=== PATIENT | male | born 1965 | race Two or more races ===

== ENCOUNTER 2020-03-15 21:17 | Inpatient (IN) | payer OTHER ==
[~2020-03-15] VITALS: Ht 172.7 cm; Wt 79.3 kg
[2020-03-15] MEDS ORDERED: HEPARIN SODIUM (PORCINE) 5000 UNITS/ML 1ML VIAL ONE (21:24)
[2020-03-15] MEDS ORDERED: HEPARIN 1,000 UNITS/ml 1ML VIAL IV ONE (21:30)
[2020-03-15] MEDS ORDERED: MORPHINE SULFATE 4 MG/ML SYR/VIAL IV ONE (21:30)
[2020-03-15] MEDS ORDERED: METOPROLOL TARTRATE 1MG/1ML-5ML VIAL IV ONE (21:30)
[2020-03-15] MEDS ORDERED: ATORVASTATIN 20 MG TAB PO ONE (21:30)
[2020-03-15] MEDS ORDERED: NITROGLYCERIN 0.4 MG SL TAB SL PRN ×2 (21:30→23:30)
[2020-03-15] MEDS ORDERED: MORPHINE SULF INJ 2 MG/ML SYRINGE 1ML ONE (21:31)
[2020-03-15] MEDS ORDERED: ONDANSETRON HCL 4 MG/2 ML VIAL ONE (21:31)
[2020-03-15] MEDS ORDERED: LIDOCAINE 2%HCL (LOCAL ANESTH.) INJ 20ML MDV ONE (21:45)
[2020-03-15] MEDS ORDERED: IOHEXOL 350 MG/ML 100ML IJ ONE (21:45)
[2020-03-15] MEDS ORDERED: fentaNYL CITRATE 100 MCG/2 ML VL ONE (21:50)
[2020-03-15] MEDS ORDERED: ANGIOMAX 250 MG VIAL IV ONE (21:50)
[2020-03-15] MEDS ORDERED: SODIUM CHL 0.9% 50 ML ONE (21:51)
[2020-03-15] MEDS ORDERED: MIDAZOLAM HCL 1MG/1ML-2 ML VIAL ONE (21:51)
[2020-03-15 21:59] LABS: Albumin 4.1 g/dL (3.4-5.0); Calcium 8.8 mg/dL (8.5-10.1); Magnesium 2.4 mg/dL (1.6-2.6); Potassium 3.8 mmol/L (3.5-5.1)
[2020-03-15 22:05] LABS: BUN/Creatinine Ratio 11.4; Bilirubin, Total 0.3 mg/dL (0.2-1.0); Total Protein 8.4 g/dL (6.4-8.2)
[2020-03-15 22:07] LABS: Basophils # (auto) 0 10 ^3/uL (0-0.2); Basophils % (auto) 0.3 % (0.0-2.0); Eosinophils # (auto) 0 10 ^3/uL (0-0.8); Eosinophils % (auto) 0.1 % (0.0-7.0); Hematocrit 50.1 % (41.0-53.0); Hemoglobin 16.6 g/dL (13.5-17.5); Lymphocytes # (auto) 0.6 10 ^3/uL (0.4-5.4); Lymphocytes % (auto) 7.5 % (10.0-50.0); Mean Corpuscular Hemoglobin 31.1 pg (28.0-32.0); Mean Corpuscular Volume 94.2 fL (80.0-100.0); Monocytes # (auto) 0.4 10 ^3/uL (0-1.3); Monocytes % (auto) 5.4 % (0.0-12.0); Neutrophils # (auto) 6.5 10 ^3/uL (1.6-8.6); Neutrophils % (auto) 86.7 % (37.0-80.0); Nucleated Red Blood Cells % 0.2 %; Platelet Count (auto) 279 10^3/uL (140-450); Red Blood Cells 5.32 10^6/uL (4.5-5.90); Red Cell Distribution Width 13.8 % (11.8-14.3); White Blood Cell 7.5 10^3/uL (4.4-10.8)
[2020-03-15] MEDS ORDERED: TICAGRELOR 90 MG TAB ONE (22:25)
[2020-03-15 22:28] LABS: Cholesterol 209 mg/dL (< 200)
[2020-03-15] MEDS ORDERED: METOCLOPRAMIDE HCL 5MG/ml INJ 2ml VIAL ONE (22:28)
[2020-03-15 22:31] LABS: HDL Cholesterol 38 mg/dL (40-59); LDL Cholesterol 163 mg/dL (< 100); Triglycerides 125 mg/dL (< 150)
[2020-03-15 22:41] LABS: INR 1.01 (0.9-1.15); Partial Thromboplastin Time 24.7 sec (23.64-32.05)
[2020-03-15] MEDS ORDERED: ENALAPRILAT 1.25 MG/ML-1ML VIAL IV ONE (22:42)
[2020-03-15] MEDS ORDERED: MORPHINE SULF INJ 2 MG/ML SYRINGE 1ML IV PRN (23:30)
[2020-03-15 23:55] VITALS: BP 126/66
[2020-03-16] MEDS ORDERED: HYDR200T36 PO (04:24)
[2020-03-16] MEDS ORDERED: ESCI10TA PO (04:26)
[2020-03-16] MEDS ORDERED: HYDR-4833 PO (04:26)
[2020-03-16 05:00] VITALS: BP 108/67
[2020-03-16 07:51] LABS: Albumin 3.5 g/dL (3.4-5.0); Anion Gap 5 (5-15); Blood Urea Nitrogen 11 mg/dL (7-18); Calcium 8.3 mg/dL (8.5-10.1); Carbon Dioxide 26 mmol/L (21-32); Chloride 106 mmol/L (98-107); Glucose 122 mg/dL (74-106); Sodium 137 mmol/L (136-145)
[2020-03-16 08:10] LABS: Alanine Aminotransferase 91 U/L (16-61); Alkaline Phosphatase 57 U/L (45-117); Aspartate Aminotransferase 573 U/L (15-37); BUN/Creatinine Ratio 14.7; Bilirubin, Total 0.5 mg/dL (0.2-1.0); GFR African American 140 mL/min; GFR Non-African American 116 mL/min; Total Protein 7.3 g/dL (6.4-8.2)
[2020-03-16 09:00] VITALS: BP 121/77
[2020-03-16] MEDS: TICAGRELOR 90 MG TAB PO SCH ×2 (09:41→21:41)
[2020-03-16] MEDS: ASPirin 81 mg TAB PO SCH (09:41)
[2020-03-16] MEDS: ENALAPRIL MALEATE 2.5 MG TAB PO SCH (09:41)
[2020-03-16] MEDS: HYDROcodone-ACET 10/325MG TAB PO PRN ×2 (11:40→18:32)
[2020-03-16 13:00] VITALS: BP 124/80
[2020-03-16 17:00] VITALS: BP 116/69
[2020-03-16] MEDS: hydrOXYchloroQUINE SULFATE 200 MG TAB PO SCH (18:32)
[2020-03-16 22:00] VITALS: BP 111/71
[2020-03-16] MEDS ORDERED: ATORVASTATIN 20 MG TAB PO SCH (22:00)
[2020-03-17 05:00] VITALS: BP 120/73
[2020-03-17] MEDS: HYDROcodone-ACET 10/325MG TAB PO PRN (05:51)
[2020-03-17 07:09] LABS: Basophils # (auto) 0 10 ^3/uL (0-0.2); Basophils % (auto) 0.2 % (0.0-2.0); Eosinophils # (auto) 0 10 ^3/uL (0-0.8); Eosinophils % (auto) 0.4 % (0.0-7.0); Hematocrit 49.5 % (41.0-53.0); Hemoglobin 16.2 g/dL (13.5-17.5); Lymphocytes # (auto) 0.8 10 ^3/uL (0.4-5.4); Lymphocytes % (auto) 11.8 % (10.0-50.0); Mean Corpuscular Hemoglobin 31.1 pg (28.0-32.0); Mean Corpuscular Hgb Conc. 32.7 g/dL (32.0-36.0); Mean Corpuscular Volume 94.9 fL (80.0-100.0); Monocytes # (auto) 0.9 10 ^3/uL (0-1.3); Monocytes % (auto) 13.3 % (0.0-12.0); Neutrophils # (auto) 4.7 10 ^3/uL (1.6-8.6); Neutrophils % (auto) 74.3 % (37.0-80.0); Nucleated Red Blood Cells % 0.1 %; Platelet Count (auto) 224 10^3/uL (140-450); Red Blood Cells 5.21 10^6/uL (4.5-5.90); Red Cell Distribution Width 13.6 % (11.8-14.3); White Blood Cell 6.4 10^3/uL (4.4-10.8)
[2020-03-17 07:36] LABS: Calcium 8.5 mg/dL (8.5-10.1); Potassium 4.3 mmol/L (3.5-5.1)
[2020-03-17 08:00] VITALS: BP 106/75
[2020-03-17] MEDS: TICAGRELOR 90 MG TAB PO SCH (10:11)
[2020-03-17] MEDS: hydrOXYchloroQUINE SULFATE 200 MG TAB PO SCH (10:11)
[2020-03-17] MEDS: ASPirin 81 mg TAB PO SCH (10:11)
[2020-03-17] MEDS: ENALAPRIL MALEATE 2.5 MG TAB PO SCH (10:13)
[2020-03-17 10:58] VITALS: BP 106/75
== END 2020-03-17 12:25 | disposition home or self-care (01) | DRG 249 ==
LOC: EDBD 21:17 → ER 21:19 → CATH 1 22:28 → TELE-CENTR 22:29
PROVIDERS: ADMIT Internal Medicine Cardiovascular Disease; ATTEND Internal Medicine
PROC: 4A023N7 Measurement of Cardiac Sampling and Pressure, Left Heart, Percutaneous Approach (ICD-10-PCS; principal; 2020-03-15)
PROC: 02703DZ Dilation of Coronary Artery, One Artery with Intraluminal Device, Percutaneous Approach (ICD-10-PCS; 2020-03-15)
PROC: 02703ZZ Dilation of Coronary Artery, One Artery, Percutaneous Approach (ICD-10-PCS; 2020-03-15)
PROC: B2111ZZ Fluoroscopy of Multiple Coronary Arteries using Low Osmolar Contrast (ICD-10-PCS; 2020-03-15)
PROC: B2151ZZ Fluoroscopy of Left Heart using Low Osmolar Contrast (ICD-10-PCS; 2020-03-15)
DX: I21.02 ST elevation (STEMI) myocardial infarction involving left anterior descending coronary artery (principal); E78.5 Hyperlipidemia, unspecified; I25.10 Atherosclerotic heart disease of native coronary artery without angina pectoris; I25.5 Ischemic cardiomyopathy; Z79.82 Long term (current) use of aspirin; Z79.899 Other long term (current) drug therapy; Z86.73 Personal history of transient ischemic attack (TIA), and cerebral infarction without residual deficits; Z95.5 Presence of coronary angioplasty implant and graft; Z91.19 Patient's noncompliance with other medical treatment and regimen
CPT/HCPCS: 36415; 71045; 80048; 80053; 80061; 82962; 83036; 83735; 83880; 84443; 84484; 85025; 85610; 85730; 86850; 86860; 86870; 86880; 86900; 86901; 86905; 86906; 86970; 86971; 93306; 93452; 99152; 99153; 99291; C1874; G0378; J2250; J2405

== ENCOUNTER 2022-08-13 12:33 | Emergency (ER) | payer OTHER ==
[~2022-08-13] VITALS: Ht 172.7 cm; Wt 81.3 kg
[~2022-08-13 12:33] MED LIST: ESCI10TA PO; HYDR-4833 PO; HYDR200T36 PO
[2022-08-13 13:00] LABS: Basophils # (auto) 0 10 ^3/uL (0-0.2); Basophils % (auto) 1.2 % (0.0-2.0); Eosinophils # (auto) 0.1 10 ^3/uL (0-0.8); Eosinophils % (auto) 4.1 % (0.0-7.0); Hematocrit 49.7 % (41.0-53.0); Hemoglobin 16.3 g/dL (13.5-17.5); Lymphocytes # (auto) 0.7 10 ^3/uL (0.4-5.4); Lymphocytes % (auto) 23.2 % (10.0-50.0); Mean Corpuscular Hgb Conc. 32.8 g/dL (32.0-36.0); Mean Corpuscular Volume 94.6 fL (80.0-100.0); Monocytes # (auto) 0.5 10 ^3/uL (0-1.3); Monocytes % (auto) 16.5 % (0.0-12.0); Neutrophils # (auto) 1.6 10 ^3/uL (1.6-8.6); Nucleated Red Blood Cells % 0.2 %; Red Blood Cells 5.25 10^6/uL (4.5-5.90); Red Cell Distribution Width 13.7 % (11.8-14.3)
[2022-08-13 13:20] LABS: Albumin 3.6 g/dL (3.4-5.0); BUN/Creatinine Ratio 11.1; Calcium 8.8 mg/dL (8.5-10.1); Magnesium 2.1 mg/dL (1.6-2.6); Potassium 4.5 mmol/L (3.5-5.1)
[2022-08-13 13:23] LABS: Bilirubin, Total 0.6 mg/dL (0.2-1.0); Total Protein 7.1 g/dL (6.4-8.2)
[2022-08-13 13:44] LABS: INR 0.99 (0.9-1.15); Partial Thromboplastin Time 26.2 sec (24.6-33.4)
[2022-08-13 16:04] VITALS: BP 119/68
== END 2022-08-13 16:08 | disposition home or self-care (01) ==
LOC: ER 12:33
DX: I25.10 Atherosclerotic heart disease of native coronary artery without angina pectoris (principal); I20.9 Angina pectoris, unspecified; F41.8 Other specified anxiety disorders; I25.2 Old myocardial infarction; Z87.39 Personal history of other diseases of the musculoskeletal system and connective tissue; Z86.73 Personal history of transient ischemic attack (TIA), and cerebral infarction without residual deficits; Z79.899 Other long term (current) drug therapy
CPT/HCPCS: 36415; 71045; 80053; 83735; 84484; 85025; 85610; 85730; 93005